=== PATIENT | female | born 1955 | race Caucasian/White ===

== ENCOUNTER 2021-03-28 05:23 | Day surgery (SDC) | payer MEDICARE, OTHER ==
[~2021-03-28] VITALS: Ht 163 cm; Wt 84.0 kg
[~2021-03-28 05:23] MED LIST: ACETAMINOPHEN500 M1 PO; HYZAAR 100-251 EACH PO; METOPROLOL SUC100 MG PO; NORVASC5 MG PO; SYNTHROID112 MCG PO; ZOCOR10 M1 PO
[2021-03-28] MEDS ORDERED: VITAMIN B122500 MCG PO (05:54)
[2021-03-28] MEDS ORDERED: VITAMIN D325 MC1 PO (05:55)
[2021-03-28] MEDS ORDERED: VENTOLIN HFA IN18 GM INH (05:55)
--- NOTE | 2021-03-28 15:20 | NUR ---
PT. HAD A RTKR THIS DATE. PT. WILL D/C HOME WITH [facility] TO DELIVER A RW. PT. MADE HER OWN APPT. WITH [facility]. 03/30/21 @ 1:00 P.M.
[2021-03-29 05:54] LABS: BASOPHIL 0.2 % (0-2); EOSINOPHIL 0 % (0-7); HCT 30.7 % (37.0-47.0); HGB 10.2 g/dl (12.5-16.0); LYMPHOCYTE 7.1 % (15-48); MCH 31.8 pg (25.0-31.0); MCHC 33.2 g/dL (32.0-36.0); MCV 95.6 fL (78.0-100.0); MONOCYTE 9.6 % (0-12); MPV 10.2 fL (6.0-9.5); NEUTROPHIL 82.7 % (41-80); NRBC 0; PLT 222 K/uL (150-400); RBC 3.21 M/uL (4.20-5.40); RDW 11.9 % (11.5-14.0); WBC 11.3 K/uL (4.0-10.5)
[2021-03-29 06:19] LABS: BUN/CREAT RATIO (CALC) 16.4 RATIO; CREATININE 0.61 mg/dL (0.51-0.95)
[2021-03-29] MEDS ORDERED: OXYCODONE-ACET1 EAC1 PO (09:58)
[2021-03-29] MEDS ORDERED: FEOSOL325 MG PO (09:58)
[2021-03-29] MEDS ORDERED: XARELTO10 MG PO (09:58)
== END 2021-03-29 12:30 | disposition home or self-care (01) ==
LOC: FAS 05:23 → FOFB 09:04 → FAS 03-29 12:30
PROVIDERS: Legal Medicine
DX: M17.11 Unilateral primary osteoarthritis, right knee (principal); M21.161 Varus deformity, not elsewhere classified, right knee; G89.18 Other acute postprocedural pain; I10 Essential (primary) hypertension; E78.5 Hyperlipidemia, unspecified; E03.9 Hypothyroidism, unspecified; Z91.048 Other nonmedicinal substance allergy status; Z79.899 Other long term (current) drug therapy
CPT/HCPCS: 36415; 73560; 80048; 85025; 86850; 86900; 86901; 94010; 97162; 97166; 97530-GP; 97535; C1713; C1776; J0171; J0697; J0735; J1100; J1170; J1885; J2250; J2270; J2405; J2704; J2795; J3010; J7120

== ENCOUNTER 2021-10-10 09:26 | Day surgery (SDC) | payer MEDICARE, OTHER ==
[~2021-10-10] VITALS: Ht 163 cm; Wt 82.0 kg
[~2021-10-10 09:26] MED LIST changes: +FEOSOL325 MG PO; +FLONASE ALLER15.8 ML; +OXYCODONE-ACET1 EAC1 PO; +VENTOLIN HFA IN18 GM INH; +VITAMIN B122500 MCG PO; +VITAMIN D325 MC1 PO; +XARELTO10 MG PO
--- NOTE | 2021-10-10 13:52 | NUR ---
LEFT MSG FOR OUTPT IN [facility] FOR CALLBACK AT [phone]' FAX [phone]; CALLED [facility] THE NUMBER WAS INCORRECT FINALLY WAS ABLE TO GET ALEX HER NUMBER IS [phone] SHE SAID TO EMAIL ORDER TO HER AT IN AM ; PT APPOINTMENT IS 10/13 AT 2:45PM
--- NOTE | 2021-10-10 14:13 | NUR ---
CALLED CLAIM FOR XEROLTO; PT HAS 15.66 COPAY FOR XEROLTO
[2021-10-11 07:34] LABS: BASOPHIL 0.3 % (0-2); HCT 31.3 % (37.0-47.0); HGB 10.2 g/dl (12.5-16.0); LYMPHOCYTE 6.8 % (15-48); MCH 31.9 pg (25.0-31.0); MCHC 32.6 g/dL (32.0-36.0); MCV 97.8 fL (78.0-100.0); MONOCYTE 11.7 % (0-12); NEUTROPHIL 79.9 % (41-80); NRBC 0; PLT 226 K/uL (150-400); RDW 12.4 % (11.5-14.0); WBC 8.9 K/uL (4.0-10.5)
[2021-10-11 07:55] LABS: BUN/CREAT RATIO (CALC) 13.3 RATIO; CREATININE 0.75 mg/dL (0.51-0.95); POTASSIUM 3.6 mmol/L (3.5-5.1)
[2021-10-11] MEDS ORDERED: XARELTO10 MG PO (08:50)
[2021-10-11] MEDS ORDERED: DIFLUCAN150 M1 PO (08:50)
[2021-10-11] MEDS ORDERED: OXYCODONE-ACET1 EAC1 PO (08:50)
[2021-10-11] MEDS ORDERED: FEOSOL325 MG PO (08:50)
== END 2021-10-11 13:34 | disposition home or self-care (01) ==
LOC: FAS 09:26 → FMS 13:50 → FAS 10-11 13:34
PROVIDERS: Legal Medicine
DX: M17.12 Unilateral primary osteoarthritis, left knee (principal); M21.162 Varus deformity, not elsewhere classified, left knee; G89.18 Other acute postprocedural pain; I10 Essential (primary) hypertension; E78.5 Hyperlipidemia, unspecified; E03.9 Hypothyroidism, unspecified; Z79.899 Other long term (current) drug therapy
CPT/HCPCS: 36415; 73560; 80048; 85025; 86850; 86900; 86901; 94010; 94762; 97110; 97162; 97165; 97530-GP; C1713; C1776; J0171; J0697; J1885; J2250; J2270; J2704; J2795; J3010; J7120